=== PATIENT | female | born 1985 | race Two or more races ===

== ENCOUNTER 2019-03-29 09:37 | Outpatient (CLI) | payer OTHER | END 2019-03-29 09:44 | disposition home or self-care (01) | LOC: SONOGRAMA 09:37 | DX: E04.1 Nontoxic single thyroid nodule (principal) ==

== ENCOUNTER 2019-08-05 11:16 | Outpatient (CLI) | payer OTHER | END 2019-08-05 11:22 | disposition home or self-care (01) | LOC: NUCLEAR 11:16 | PROVIDERS: ATTEND Internal Medicine Sports Medicine | DX: C73 Malignant neoplasm of thyroid gland (principal); E89.0 Postprocedural hypothyroidism | CPT/HCPCS: 79005; A9517 ==

== ENCOUNTER 2019-08-09 13:08 | Outpatient (CLI) | payer OTHER | END 2019-08-09 14:25 | disposition home or self-care (01) | LOC: NUCLEAR 13:08 | PROVIDERS: ATTEND Internal Medicine Sports Medicine | DX: C73 Malignant neoplasm of thyroid gland (principal); E89.0 Postprocedural hypothyroidism ==

== ENCOUNTER 2021-02-20 21:01 | Emergency (ER) | payer OTHER ==
[~2021-02-20] VITALS: Ht 154.9 cm; Wt 90.7 kg
[2021-02-20] MEDS ORDERED: SYNTHROID150 MCG (21:17)
[2021-02-20] MEDS ORDERED: ADVIL (21:17)
[2021-02-21] MEDS ORDERED: ZYNCOF 20-400120 ML PO ×2 (02:37)
== END 2021-02-21 03:26 ==
LOC: ER 21:01
DX: U07.1 COVID-19 (principal); J98.01 Acute bronchospasm; E03.9 Hypothyroidism, unspecified

== ENCOUNTER 2021-05-14 17:01 | Emergency (ER) | payer OTHER ==
[~2021-05-14] VITALS: Ht 154.9 cm; Wt 102.5 kg
[~2021-05-14 17:01] MED LIST: ADVIL; SYNTHROID150 MCG; ZYNCOF 20-400120 ML PO
[2021-05-14] MEDS ORDERED: ZESTRIL10 M1 PO (17:14)
[2021-05-14] MEDS ORDERED: KETO10TA2 PO (18:51)
[2021-05-14] MEDS ORDERED: MEDROLPACK PO (18:51)
== END 2021-05-14 20:11 | disposition home or self-care (01) ==
LOC: ER 17:01
DX: S63.619A Unspecified sprain of unspecified finger, initial encounter (principal)

== ENCOUNTER 2021-09-22 08:08 | Emergency (ER) | payer OTHER ==
[~2021-09-22] VITALS: Ht 154.9 cm; Wt 90.7 kg
[~2021-09-22 08:08] MED LIST changes: +KETO10TA2 PO; +MEDROLPACK PO; +ZESTRIL10 M1 PO
[2021-09-22] MEDS ORDERED: MUCINEX DM ER1 EACH PO (11:17)
[2021-09-22] MEDS ORDERED: ZYRTEC10 MG PO (11:17)
[2021-09-22] MEDS ORDERED: XOPENEX0.63 MG/3 IH (11:17)
[2021-09-22] MEDS ORDERED: MOLNUPIRAVIR (200 MG PO (11:17)
[2021-09-22] MEDS ORDERED: ACETAMINOPHEN650 M2 PO (11:17)
== END 2021-09-22 11:30 | disposition home or self-care (01) ==
LOC: ER 08:08 → EDBD 08:12 → ER 08:12
DX: U07.1 COVID-19 (principal); J06.9 Acute upper respiratory infection, unspecified; B34.9 Viral infection, unspecified; I10 Essential (primary) hypertension; Z91.013 Allergy to seafood

== ENCOUNTER 2022-06-19 19:50 | Emergency (ER) | payer OTHER ==
[~2022-06-19] VITALS: Ht 154.9 cm; Wt 95.3 kg
[~2022-06-19 19:50] MED LIST changes: +ACETAMINOPHEN650 M2 PO; +MOLNUPIRAVIR (200 MG PO; +MUCINEX DM ER1 EACH PO; +XOPENEX0.63 MG/3 IH; +ZYRTEC10 MG PO
[2022-06-19] MEDS ORDERED: AMOX-CLAV 875-1 EACH PO (20:32)
== END 2022-06-19 22:06 | disposition home or self-care (01) ==
LOC: ER 19:50
DX: S60.471A Other superficial bite of left index finger, initial encounter (principal); Y04.1XXA Assault by human bite, initial encounter; Y93.89 Activity, other specified; Y92.89 Other specified places as the place of occurrence of the external cause; Z91.013 Allergy to seafood; E03.9 Hypothyroidism, unspecified; J45.909 Unspecified asthma, uncomplicated; I10 Essential (primary) hypertension; Z85.850 Personal history of malignant neoplasm of thyroid

== ENCOUNTER 2022-08-05 17:08 | Emergency (ER) | payer OTHER ==
[~2022-08-05] VITALS: Ht 154.9 cm; Wt 90.7 kg
[~2022-08-05 17:08] MED LIST changes: +AMOX-CLAV 875-1 EACH PO
[2022-08-05] MEDS ORDERED: SYNTHROID200 MCG PO (17:47)
[2022-08-05] MEDS ORDERED: PRILOSEC OTC20 MG (17:48)
== END 2022-08-05 21:59 | disposition home or self-care (01) ==
LOC: ER 17:08
DX: J10.1 Influenza due to other identified influenza virus with other respiratory manifestations (principal); R53.81 Other malaise; B34.9 Viral infection, unspecified; Z20.822 Contact with and (suspected) exposure to COVID-19; Z91.013 Allergy to seafood

== ENCOUNTER 2023-02-08 19:13 | Emergency (ER) | payer OTHER ==
[~2023-02-08] VITALS: Ht 154.9 cm; Wt 99.8 kg
[~2023-02-08 19:13] MED LIST changes: +PRILOSEC OTC20 MG; +SYNTHROID200 MCG PO
[2023-02-08 22:30] LABS: PH,URINE 6.5 (5.0-8.0); URINE APPEARANCE Cloudy; URINE BILIRRUBIN Negative (NEGATIVE); URINE BLOOD Moderate; URINE COLOR Yellow; URINE EPITHELIAL CELLS 13.4 uL (0.0-38.8); URINE GLUCOSE Negative (NEGATIVE); URINE LEUKOCYTE Large; URINE NITRATE Negative; URINE RBC 129.3 uL (0.0-20.8); URINE WBC 3349.9 uL (0.0-23.2)
[2023-02-08 22:34] LABS: HEMATOCRIT 38.5 % (36.0-45.00); HEMOGLOBIN 12.9 g/dL (12.0-15.00); MEAN CELL VOLUME 84.3 fL (80.00-100.00); MEAN CORPUSCULAR HEMOGLOBIN 28.2 pg (27.00-32.0); MEAN CORPUSCULAR HGB CONC 33.4 g/dl (32.0-36.0); PLATELET COUNT 238 K/uL (150-450); RED BLOOD COUNT 4.56 M/uL (4.00-6.00); RED CELL DISTRIBUTION WIDTH 13.5 % (11.5-14.5)
[2023-02-08 22:44] LABS: CALCIUM 9.1 mg/dL (8.5-10.1); CREATININE SERUM 0.8 mg/dL (0.55-1.02); GFR 81.16; POTASSIUM 3.52 mEq/L (3.5-5.1)
[2023-02-08 22:48] LABS: URINE PROTEIN 100 (NEGATIVE)
[2023-02-08 22:52] LABS: URINE YEAST NEGATIVE /hpf
[2023-02-10] MEDS ORDERED: KETO10TA2 PO (03:49)
[2023-02-10] MEDS ORDERED: CEPHALEXIN500 MG PO ×3 (03:49→03:50)
[2023-02-10] MEDS ORDERED: PEPCID40 MG PO ×3 (03:49→03:50)
== END 2023-02-09 01:20 | disposition home or self-care (01) ==
LOC: ER 19:13
DX: R30.0 Dysuria (principal); K80.80 Other cholelithiasis without obstruction; Z91.013 Allergy to seafood

== ENCOUNTER 2023-02-09 22:01 | Emergency (ER) | payer OTHER ==
[~2023-02-09] VITALS: Ht 154.9 cm; Wt 90.7 kg
[2023-02-10 00:20] LABS: PH,URINE 5.5 (5.0-8.0); URINE APPEARANCE Clear; URINE BILIRRUBIN Negative (NEGATIVE); URINE BLOOD Trace; URINE COLOR Yellow; URINE GLUCOSE Negative (NEGATIVE); URINE LEUKOCYTE Moderate; URINE NITRATE Negative; URINE PROTEIN 30 (NEGATIVE)
[2023-02-10 00:24] LABS: URINE BACTERIA 1044.5 uL (0.0-1933); URINE EPITHELIAL CELLS 53.4 uL (0.0-38.8); URINE RBC 63.3 uL (0.0-20.8); URINE WBC 309.8 uL (0.0-23.2)
[2023-02-10 00:44] LABS: HEMATOCRIT 38.5 % (36.0-45.00); HEMOGLOBIN 12.5 g/dL (12.0-15.00); MEAN CELL VOLUME 84.1 fL (80.00-100.00); MEAN CORPUSCULAR HEMOGLOBIN 27.3 pg (27.00-32.0); MEAN CORPUSCULAR HGB CONC 32.4 g/dl (32.0-36.0); PLATELET COUNT 251 K/uL (150-450); RED BLOOD COUNT 4.57 M/uL (4.00-6.00); RED CELL DISTRIBUTION WIDTH 13.8 % (11.5-14.5)
[2023-02-10 01:16] LABS: ALBUMIN 3.2 gm/dL (3.4-5.0); BILIRUBIN TOTAL 0.23 mg/dL (0.3-1.2); CALCIUM 8.6 mg/dL (8.5-10.1); CREATININE SERUM 0.82 mg/dL (0.55-1.02); GFR 78.88; GLOBULINA 4.2 G/DL (2.4-3.5); POTASSIUM 3.67 mEq/L (3.5-5.1); TOTAL PROTEIN 7.4 gm/dL (6.4-8.2)
[2023-02-10] MEDS ORDERED: KETO10TA2 PO (03:49)
[2023-02-10] MEDS ORDERED: CEPHALEXIN500 MG PO ×3 (03:49→03:50)
[2023-02-10] MEDS ORDERED: PEPCID40 MG PO ×3 (03:49→03:50)
== END 2023-02-10 04:47 ==
LOC: ER 22:01
PROVIDERS: Emergency Medicine
DX: N39.0 Urinary tract infection, site not specified (principal); Z91.013 Allergy to seafood

== ENCOUNTER 2023-11-03 13:47 | Emergency (ER) | payer OTHER ==
[~2023-11-03] VITALS: Ht 152.4 cm; Wt 99.8 kg
[~2023-11-03 13:47] MED LIST changes: +CEPHALEXIN500 MG PO; +PEPCID40 MG PO
[2023-11-03] MEDS ORDERED: KETOROLAC TROMETHAMINE 60 MG VIAL IM ONE ×2 (18:15→18:25)
[2023-11-03 18:41] LABS: HEMATOCRIT 39.1 % (36.0-45.00); MEAN CELL VOLUME 86.7 fL (80.00-100.00); MEAN CORPUSCULAR HEMOGLOBIN 28.8 pg (27.00-32.0); MEAN CORPUSCULAR HGB CONC 33.2 g/dl (32.0-36.0); PLATELET COUNT 211 K/uL (150-450); RED BLOOD COUNT 4.51 M/uL (4.00-6.00); RED CELL DISTRIBUTION WIDTH 15.1 % (11.5-14.5)
[2023-11-03 19:40] LABS: PH,URINE 5.5 (5.0-8.0); URINE APPEARANCE Clear; URINE BILIRRUBIN Negative (NEGATIVE); URINE BLOOD Trace; URINE COLOR Yellow; URINE GLUCOSE Negative (NEGATIVE); URINE KETONE Negative (NEGATIVE); URINE LEUKOCYTE Negative; URINE NITRATE Negative; URINE PROTEIN 30 (NEGATIVE)
[2023-11-03 19:44] LABS: URINE EPITHELIAL CELLS 25.3 uL (0.0-38.8); URINE RBC 19.8 uL (0.0-20.8); URINE WBC 20.3 uL (0.0-23.2)
[2023-11-03 20:11] LABS: URINE CAST 0.15 uL (0.0-1.40)
[2023-11-03] MEDS ORDERED: IBUPROFEN800 MG PO (22:11)
== END 2023-11-03 22:35 | disposition home or self-care (01) ==
LOC: ER 13:49
PROVIDERS: Preventive Medicine Public Health & General Preventive Medicine
DX: S09.8XXA Other specified injuries of head, initial encounter (principal); T14.90XA Injury, unspecified, initial encounter; W10.8XXA Fall (on) (from) other stairs and steps, initial encounter; Y93.89 Activity, other specified; Y92.89 Other specified places as the place of occurrence of the external cause; Y99.8 Other external cause status; I10 Essential (primary) hypertension; E03.8 Other specified hypothyroidism; Z91.013 Allergy to seafood